=== PATIENT | male | born 1985 ===

== ENCOUNTER 2018-02-08 02:58 | Emergency (ER) | payer OTHER, MEDICAID ==
[2018-02-08 03:14] VITALS: TEMP 97.8
--- NOTE | 2018-02-08 03:57 | ED PDOC ---
HPI: Psych/Substance Abuse Time Seen by Provider: 02/08/18 03:26 Chief Complaint (Nursing): Alcohol Ingestion ED Caveat: Intoxicated History Per: Patient History/Exam Limitations: intoxication Additional Complaint(s): Pt. brought in by EMS for ETOH. Admits to drinking alcohol. Offers no complaints. Past Medical History Reviewed: Historical Data, Nursing Documentation, Vital Signs Vital Signs: Last Vital Signs Temp 97.8 F 02/08/18 03:12 Pulse 91 H 02/08/18 03:12 Resp 16 02/08/18 03:12 BP 121/74 02/08/18 03:12 Pulse Ox 98 02/08/18 03:12 - Family History Family History: States: Unknown Family Hx - Allergies Allergies/Adverse Reactions: Allergies Allergy/AdvReac Type Severity Reaction Status Date / Time Unobtainable Allergy Verified 02/08/18 03:14 Review of Systems Review Of Systems: ROS cannot be obtained secondary to pt's inabilty to answer questions. Physical Exam - Physical Exam Appears: Positive for: Well, Non-toxic, No Acute Distress Head Exam: Positive for: ATRAUMATIC, NORMAL INSPECTION, NORMOCEPHALIC Skin: Positive for: Normal Color, Warm. Negative for: Rash Eye Exam: Positive for: Normal appearance, PERRL. Negative for: Periorbital swelling, Periorbital tenderness ENT: Positive for: Normal ENT Inspection, TM Is/Are (no hemotympanum b/l). Negative for: Pharyngeal Erythema, Tonsillar Exudate, Tonsillar Swelling Neck: Positive for: Normal, Painless ROM Cardiovascular/Chest: Positive for: Regular Rate, Rhythm, Chest Non Tender Respiratory: Positive for: Normal Breath Sounds. Negative for: Respiratory Distress Gastrointestinal/Abdominal: Positive for: Normal Exam, Soft, Other (no ecchymosis). Negative for: Tenderness Back: Positive for: Normal Inspection. Negative for: L CVA Tenderness, R CVA Tenderness, Vertebral Tenderness Neurologic/Psych: Positive for: Alert. Negative for: Aphasia, Facial Droop - Laboratory Results Result Diagrams: 02/08/18 03:35 02/08/18 03:35 - ECG O2 Sat by Pulse Oximetry: 98 - Progress ED Course And Treament: Labs ordered. Re-evaluation Time: 05:50 (No distress. Sleeping comfortably. Arousable to non- painful tactile stimuli.) Condition: Re-examined, Unchanged Disposition - Clinical Impression Clinical Impression: Alcohol intoxication - Patient ED Disposition Is Patient to be Admitted: Transfer of Care (Dr. Zurita continued care at 0600) - Disposition Disposition Time: 06:00 Condition: STABLE Forms: [facility] (Burkinan)
[2018-02-08 04:04] LABS: BASO # 0.1 K/uL (0.0-0.2); BASO % 1.1 % (0.0-2.0); EOS % 0.4 % (0.0-4.0); HEMOGLOBIN 15.1 g/dL (12.0-18.0); LYMPH # 2.1 K/uL (1.0-4.3); MEAN CORPUSCULAR HGB CONC 34.9 g/dL (33.0-37.0); MEAN PLATELET VOLUME 8.7 fl (7.2-11.7); MONO # 0.5 K/uL (0.0-0.8); MONO % 5.9 % (0.0-10.0); NEUT % 68.6 % (50.0-75.0); NRBC % 0.1 % (0.0-0.0); RBC 5.21 Mil/uL (4.40-5.90); RED CELL DISTRIBUTION WIDTH 13.6 % (11.5-14.5); WHITE BLOOD COUNT 8.7 K/uL (4.8-10.8)
[2018-02-08 04:22] LABS: BLOOD UREA NITROGEN 16 mg/dl (9-20); GFR NON-AFRICAN AMERICAN > 60
[2018-02-08 04:23] LABS: ALB/GLOB RATIO 1.7 (1.0-2.1); ALBUMIN 4.5 g/dL (3.5-5.0)
[2018-02-08 04:24] LABS: ALT/SGPT 36 U/L (21-72); AST/SGOT 42 U/L (17-59)
--- NOTE | 2018-02-08 06:34 | ED PDOC ---
- Laboratory Results Result Diagrams: 02/08/18 03:35 02/08/18 03:35 - ECG O2 Sat by Pulse Oximetry: 98 (RA) Pulse Ox Interpretation: Normal Medical Decision Making Medical Decision Making: Time: 0600 Patient signed-out to me by Devang Oconnell PA-C pending sobriety. [address] mathew pending sobriety Scribe Attestation: Documented by Vidhi Hanna, acting as a scribe for Breezy Zurita MD. Provider Scribe Attestation: All medical record entries made by the Scribe were at my direction and personally dictated by me. I have reviewed the chart and agree that the record accurately reflects my personal performance of the history, physical exam, medical decision making, and the department course for this patient. I have also personally directed, reviewed, and agree with the discharge instructions and disposition. Disposition - Clinical Impression Clinical Impression: Alcohol intoxication - POA Present On Arrival: None - Disposition Disposition: Transfer of Care Disposition Time: 07:00 Condition: STABLE Forms: [employer] (Chinese) Patient Signed Over To: Carlie Mathew
--- NOTE | 2018-02-08 07:58 | ED PDOC ---
- Laboratory Results Result Diagrams: 02/08/18 03:35 02/08/18 03:35 - ECG O2 Sat by Pulse Oximetry: 98 (RA) Medical Decision Making Medical Decision Makin:15a: Received patient from Dr. Zurita. Patient is pending sobriety. 8:05: patient awake, alert and has steady gait. no complaints. Will discharge. Disposition Doctor Will See Patient In The: Office Counseled Patient/Family Regarding: Diagnosis, Need For Followup - Clinical Impression Clinical Impression: Alcohol intoxication - POA Present On Arrival: None - Disposition Disposition: Routine/Home Disposition Time: 08:06 Condition: STABLE Instructions: Alcohol Abuse and Alcoholism (DC) Forms: [employer] [facility] (Albanian)
[2018-02-08 09:16] VITALS: BP 122/67; PULSE 71; RESP 18; O2SAT 100
== END 2018-02-08 08:24 | disposition home or self-care (01) ==
LOC: H.ER 02:58
DX: F10.129 Alcohol abuse with intoxication, unspecified (principal)